=== PATIENT | male | born 1980 | race Caucasian/White ===

== ENCOUNTER 2016-09-23 11:13 | Day surgery (SDC) | payer OTHER ==
[2016-09-19 09:28] VITALS: BMI 31.1
[~2016-09-23 11:13] MED LIST: LACTATED RINGERS 1,000 ML IV SCH
[2016-09-23] MEDS ORDERED: LIDOCAINE 1% 20 ML VIAL (10MG/ML) FOR IV START SQ ONE (11:26)
[2016-09-23 11:38] VITALS: RESP 16; TEMP 97.3
[2016-09-23] MEDS ORDERED: PROPOFOL 10 MG/ML 20 ML VIAL IV ONE (12:10)
--- NOTE | 2016-09-23 12:40 | P.PCN ---
Date of Procedure: 09/23/16 Procedure(s) Performed: Procedure: Total colonoscopy. Preoperative diagnosis: Change in bowel movements, rectal bleeding and history of rectal polyp. Postoperative diagnosis: Mild sigmoid diverticulosis with no evidence of acute diverticulitis, strictures, polyps or cancer. Preparation: HalfLytely prep. Sedation: Was provided by anesthesia. Brief clinical history: The patient is a 36-year-old male who was evaluated in the office as scheduled for this evaluation to assess for neoplasia, inflammatory bowel disease or other pathology. Procedure: With the patient on his left lateral decubitus position and after informed consent and adequate sedation, the perianal area was inspected and it did not show any fissures or fistulas. There were no masses felt on digital rectal examination. The Olympus CFQ 160L video colonoscope was then inserted in the rectum in the usual fashion and advanced to the cecum. I then intubated the ileocecal valve and examined the terminal ileum. Terminal ileum and colon appeared healthy with no edema, erythema, friability, ulceration, exudation or spontaneous bleeding. There were few small diverticular orifices seen scattered in the distal sigmoid with no evidence of acute diverticulitis or strictures. No polyps or tumors were seen. I retroflexed endoscope in the rectum before the endoscope was withdrawn. No obvious pathology or any evidence of bleeding was noted. The patient tolerated the procedure well. Plan: The patient was reassured. Discussed dietary measures. Further plans based on his course. Would keep you updated on his progress.
[2016-09-23 12:55] VITALS: BP 121/76; PULSE 72
== END 2016-09-23 13:18 | disposition home or self-care (01) ==
LOC: ORWHC2ENDO 11:13
DX: K57.30 Diverticulosis of large intestine without perforation or abscess without bleeding (principal); Z86.010 Personal history of colon polyps; Z79.899 Other long term (current) drug therapy
CPT/HCPCS: 45378; J2704; 99153

== ENCOUNTER → 2017-02-07 | Outpatient (CLI) | payer OTHER | END | disposition home or self-care (01) | LOC: LABWHC1 07:59 | PROVIDERS: ATTEND Nurse Practitioner Family | DX: E03.8 Other specified hypothyroidism (principal) | CPT/HCPCS: 36415; 84443 ==

== ENCOUNTER → 2025-01-09 | Outpatient (CLI) | payer OTHER ==
[2025-01-09 22:26] LABS: Chol/HDL Ratio 6.13 Ratio; LDL Cholesterol,Calculated 74.8 mg/dL (0.0-131.0)
== END | disposition home or self-care (01) ==
LOC: LABWHC1 15:09
PROVIDERS: ATTEND Student in an Organized Health Care Education/Training Program
DX: E78.5 Hyperlipidemia, unspecified (principal); E11.9 Type 2 diabetes mellitus without complications; R35.1 Nocturia; Z79.4 Long term (current) use of insulin
CPT/HCPCS: 36415; 80061; 83036; 84153